=== PATIENT | female | born 1990 | race Caucasian/White ===

== ENCOUNTER 2018-07-09 10:46 | Emergency (ER) | payer SELFPAY ==
[~2018-07-09] VITALS: Ht 157.5 cm; Wt 78.8 kg
--- NOTE | 2018-07-09 11:47 | REP ---
Left hand series: Four views. History: Pain. Findings: Four views of the left hand demonstrate overall normal mineralization. Bones, joints and soft tissues are radiographically unremarkable. No fracture is seen. Impression: No acute bony abnormality. Negative left hand radiographs. Electronically Signed by Peter Brooks MD 07/09/2018 11:39 A
[2018-07-09] MEDS ORDERED: IBUP-1022 PO (13:36)
[2018-07-09 13:46] VITALS: BP 119/66
== END 2018-07-09 13:47 | disposition home or self-care (01) ==
LOC: M ED 10:46
DX: M79.642 Pain in left hand (principal); Z88.8 Allergy status to other drugs, medicaments and biological substances; F17.210 Nicotine dependence, cigarettes, uncomplicated